=== PATIENT | female | born 1980 | race Caucasian/White ===

== ENCOUNTER 2016-08-26 13:41 | Observation (INO) | payer OTHER ==
[~2016-08-26] VITALS: Ht 175.3 cm; Wt 101.6 kg
[2016-08-26 15:28] LABS: HEMOGLOBIN 14.7 gm/dl (12.3-15.3); RED BLOOD COUNT 5.02 M/UL (4.00-5.10); WHITE BLOOD COUNT 15.4 K/UL (4.5-11.0)
[2016-08-26 15:53] LABS: BUN/CREATININE RATIO 9 (0-10)
[2016-08-26] MEDS ORDERED: REQUIP2 MG PO (22:00)
[2016-08-26] MEDS ORDERED: TENORMIN 50 MG50 MG PO (22:01)
[2016-08-26] MEDS ORDERED: HYDRALAZINE HCL25 MG PO (22:01)
[2016-08-27 06:09] LABS: HEMOGLOBIN 13.9 gm/dl (12.3-15.3); RED BLOOD COUNT 4.85 M/UL (4.00-5.10); WHITE BLOOD COUNT 14.1 K/UL (4.5-11.0)
[2016-08-27 06:35] LABS: BUN/CREATININE RATIO 10 (0-10)
[2016-08-27] MEDS ORDERED: LISINOPRIL10 MG PO (19:18)
[2016-08-27] MEDS ORDERED: HYDRALAZINE HCL25 MG PO (19:18)
[2016-08-27] MEDS ORDERED: ROPINIROLE HCL2 MG PO (19:19)
[2016-08-27] MEDS ORDERED: IMITREX25 MG PO (19:20)
== END 2016-08-27 19:45 | disposition home or self-care (01) ==
LOC: ER1 13:41 → M/S 20:31 → ZEROF 20:31 → M/S 21:29
PROVIDERS: Student in an Organized Health Care Education/Training Program; ADMIT Internal Medicine
DX: G43.809 Other migraine, not intractable, without status migrainosus (principal); I10 Essential (primary) hypertension; G45.9 Transient cerebral ischemic attack, unspecified; K21.9 Gastro-esophageal reflux disease without esophagitis; D72.829 Elevated white blood cell count, unspecified; K58.9 Irritable bowel syndrome, unspecified; F17.210 Nicotine dependence, cigarettes, uncomplicated; Z79.899 Other long term (current) drug therapy; Z87.19 Personal history of other diseases of the digestive system; Z90.49 Acquired absence of other specified parts of digestive tract; Z90.710 Acquired absence of both cervix and uterus; Z88.0 Allergy status to penicillin; Z82.3 Family history of stroke
CPT/HCPCS: ECHO; 36415; 70450; 70544; 70553; 71010; 80048; 80053; 81001; 82550; 82553; 83874; 84484; 84703; 85025; 85610; 85730; 87086; 93005; 93306; 93880; 96374; 96375; 99285; A9577; G0378; J1200; J2765; J7040

== ENCOUNTER → 2020-09-26 | Outpatient (CLI) | payer OTHER ==
[~2020-09-26] MED LIST: HYDRALAZINE HCL25 MG PO; IMITREX25 MG PO; LISINOPRIL10 MG PO; REQUIP2 MG PO; ROPINIROLE HCL2 MG PO; TENORMIN 50 MG50 MG PO
[2020-09-26 13:05] LABS: HEMOGLOBIN 15.3 gm/dl (12.3-15.3); RED BLOOD COUNT 5.15 M/UL (4.00-5.10); WHITE BLOOD COUNT 9.2 K/UL (4.5-11.0)
[2020-10-01 01:07] LABS: D001-IGE D PTERONYSSINUS <0.10 kU/L (Class 0); D002-IGE D FARINAE <0.10 kU/L (Class 0); E001-IGE CAT DANDER <0.10 kU/L (Class 0); E005-IGE DOG DANDER <0.10 kU/L (Class 0); E072-IGE MOUSE URINE <0.10 kU/L (Class 0); G002-IGE BERMUDA GRASS <0.10 kU/L (Class 0); G006-IGE TIMOTHY GRASS <0.10 kU/L (Class 0); IMMUNOGLOBULIN E, TOTAL 15 IU/mL (6-495); M001-IGE PENICILLIUM CHRYSOGEN <0.10 kU/L (Class 0); M002-IGE CLADOSPORIUM HERBARUM <0.10 kU/L (Class 0); M003-IGE ASPERGILLUS FUMIGATUS <0.10 kU/L (Class 0); M006-IGE ALTERNARIA ALTERNATA <0.10 kU/L (Class 0); T001-IGE MAPLE/BOX ELDER <0.10 kU/L (Class 0); T003-IGE COMMON SILVER BIRCH <0.10 kU/L (Class 0); T006-IGE CEDAR, MOUNTAIN <0.10 kU/L (Class 0); T007-IGE OAK, WHITE <0.10 kU/L (Class 0); T010-IGE WALNUT <0.10 kU/L (Class 0); T011-IGE MAPLE LEAF SYCAMORE <0.10 kU/L (Class 0); T014-IGE COTTONWOOD <0.10 kU/L (Class 0); T015-IGE ASH, WHITE <0.10 kU/L (Class 0); T070-IGE WHITE MULBERRY <0.10 kU/L (Class 0); W001-IGE RAGWEED, SHORT <0.10 kU/L (Class 0); W018-IGE SHEEP SORREL <0.10 kU/L (Class 0)
== END ==
LOC: LAB 11:47
PROVIDERS: Internal Medicine Pulmonary Disease
DX: J43.2 Centrilobular emphysema (principal)
CPT/HCPCS: 36415; 82785; 85025

== ENCOUNTER → 2020-09-26 | Outpatient (CLI) | payer OTHER | LOC: HEART 5 09:41 | DX: J43.2 Centrilobular emphysema (principal); F17.210 Nicotine dependence, cigarettes, uncomplicated | CPT/HCPCS: 36415; 82785; 85025; 94010; 95012 ==